=== PATIENT | female | born 1940 | race African-American/Black ===

== ENCOUNTER 2017-04-21 15:09 | Inpatient (IN) | payer MEDICAID, MEDICARE ==
--- NOTE | 2017-04-21 15:30 | ED Physician Chart ---
ED Chief Complaint/HPI - Patient Information Date Seen:: 04/21/17 Time Seen:: 15:20 Chief Complaint:: elevated white blood cell count History of Present Illness:: Patient was sent from her care home facility for elevated white blood cell count, increased lethargy, and episodes of confusion. Allergies:: Allergies Allergy/AdvReac Type Severity Reaction Status Date / Time No Known Allergies Allergy Verified 04/21/17 15:21 Historian:: Patient Review:: Transfer documents Reviewed ED Review of Systems - Review of Systems General/Constitutional: No fever, No chills Skin: No skin lesions Head: No headache Eyes: No loss of vision ENT: No earache Neck: No neck pain Cardio Vascular: No chest pain, No palpitations Pulmonary: No SOB, No cough GI: No nausea, No vomiting, No diarrhea G/U: No dysuria Musculoskeletal: No bone or joint pain Endocrine: No polyuria, No polydipsia Psychiatric: No prior psych history Hematopoietic: No bruising Allergic/Immuno: No urticaria Neurological: No syncope ED Past Medical History - Past Medical History Past Medical History: Arthritis, Other (anemia; thrombocytopenia purpura; status post urinary tract infection; glaucoma) Surgical History: other Psychiatricy History: None, Schizophrenia ED Physical Exam - Physical Examination Other Gen/Cons comments:: Chronically ill-appearing; contracture right upper extremity; confused, does not know the correct year Head: Atraumatic Eyes: Lids, conjuctiva normal Skin: Nl inspection ENMT: External ears, nose nl Other ENMT comments:: Edentulous Neck: No nuchal rigidity Respiratory: Nl effort/Exclusion, Clear to Auscultation Cardio Vascular: RRR, No murmur, gallop, rubs GI: No tenderness/rebounding/guarding, No organomegaly Extremities: Normal digits & nails Other Neuro/Psych comments:: Contracture right upper extremity ED Labs/Radiology/EKG Results - Lab Results Results: Laboratory Results - last 24 hr 04/21/17 04/21/17 04/21/17 15:35 15:43 15:43 WBC 10.3 RBC 4.78 Hgb 13.4 Hct 41.0 MCV 85.7 MCH 28.1 MCHC Differential 32.8 RDW 13.2 Plt Count 197 MPV 8.0 Neutrophils % 70.9 Lymphocytes % 21.7 Monocytes % 5.7 Eosinophils % 1.7 Basophils % 0.0 Sodium 140 Potassium 4.0 Chloride 103 Carbon Dioxide 30.6 Anion Gap 10.4 BUN 21 Creatinine 0.8 Est GFR ( Amer) TNP Est GFR (Non-Af Amer) TNP BUN/Creatinine Ratio 26.3 Glucose 117 H Calcium 9.7 Urine Source CATH Urine Color YELLOW Urine Clarity CLOUDY H Urine pH 6.0 Ur Specific [place] 1.025 Urine Protein 30 H Urine Glucose (UA) NEGATIVE Urine Ketones NEGATIVE Urine Blood SMALL H Urine Nitrate NEGATIVE Urine Bilirubin NEGATIVE Urine Urobilinogen 1.0 Ur Leukocyte Esterase MODERATE H Urine RBC 2-5 Urine WBC 10-25 H Ur Epithelial Cells MODERATE Urine Bacteria MODERATE H ED Septic Shock - . Is Septic Shock (SBP<90, OR Lactate>4 mmol\L) present?: No ED Reassessment (Disposition) - Reassessment Reassessment Condition:: Improved - Diagnosis Diagnosis:: Urinary tract infection - Patient Disposition Admitted to:: Med/Surg Spoke to:: Ricky Mijares Admitting Medical Physician:: Ricky Mijares Condition at Disposition:: Stable, Improved
[2017-04-21 15:42] LABS: URINE MICROSCOPIC INDICATED? YES; URINE SOURCE CATH
[2017-04-21 15:43] LABS: URINE BILIRUBIN NEGATIVE (NEGATIVE); URINE BLOOD SMALL (NEGATIVE); URINE GLUCOSE (UA) NEGATIVE (NEGATIVE); URINE KETONE NEGATIVE (NEGATIVE); URINE LEUKOCYTE ESTERASE MODERATE (NEGATIVE); URINE NITRATE NEGATIVE (NEGATIVE); URINE PROTEIN 30 mg/dL (NEGATIVE)
[2017-04-21 15:51] LABS: % EOSINOPHILS 1.7 % (0.0-5.0); % LYMPHOCYTES 21.7 % (20.0-50.0); % MONOCYTES 5.7 % (2.0-10.0); % NEUTROPHILS 70.9 % (40.0-80.0); EOSINOPHILE ABSOLUTE 0.2 Th/cmm (0.1-0.4); HEMOGLOBIN 13.4 gm/dL (12-16); LYMPHOCYTE ABSOLUTE 2.2 Th/cmm (1.5-3.0); MEAN CELL VOLUME 85.7 fl (81-100); MEAN CORPUSCULAR HEMOGLOBIN 28.1 pg (27.0-31.0); MEAN CORPUSCULAR HGB CONC 32.8 pg (28.0-36.0); MONOCYTE ABSOLUTE 0.6 Th/cmm (0.3-1.0); NEUTROPHILE ABSOLUTE 7.3 Th/cmm (1.8-8.0); PLATELET COUNT 197 Th/cmm (150-400); RED BLOOD COUNT 4.78 Mil/cmm (3.80-5.20); RED CELL DISTRIBUTION WIDTH 13.2 % (11.5-20.0); WHITE BLOOD COUNT 10.3 Th/cmm (4.8-10.8)
[2017-04-21 16:03] LABS: URINE CLARITY CLOUDY (CLEAR); URINE COLOR YELLOW
[2017-04-21 16:07] LABS: URINE BACTERIA MODERATE /hpf (NONE SEEN); URINE EPITHELIAL CELLS MODERATE /lpf (FEW)
[2017-04-21 16:18] LABS: ANION GAP 10.4 (7.0-16.0); BUN - UREA NITROGEN 21 mg/dL (7-25); CALCIUM SERUM 9.7 mg/dL (8.6-10.3); CARBON DIOXIDE 30.6 mEq/L (21.0-31.0); CHLORIDE 103 mEq/L (98-107); CREATININE - SERUM 0.8 mg/dL (0.6-1.2); GLUCOSE 117 mg/dL (70-105); SODIUM SERUM 140 mEq/L (136-145)
[2017-04-21] MEDS ORDERED: Sodium Chloride 0.9% 1,000 ML IV ONE (16:29)
[2017-04-21] MEDS ORDERED: cefTRIAXone 1 GM in Sodium Chloride 0.9% 50 ML IV ONE (16:29)
[2017-04-21] MEDS ORDERED: Non-Formulary Item 1 EA (Mylanta 30 ML) PO PRN (19:35)
[2017-04-21] MEDS ORDERED: Magnesium Hydroxide (MOM) 30 mL UDC PO PRN (19:35)
[2017-04-21] MEDS ORDERED: Maalox 30 mL Cup PO PRN (19:41)
[2017-04-21] MEDS ORDERED: Ipratropium Neb 0.5 mg/2.5 mL UD IH PRN (19:41)
[2017-04-21] MEDS ORDERED: Albuterol Nebulizer 2.5mg/3mL HHN PRN (19:41)
[2017-04-21] MEDS ORDERED: guaiFENesin 200 MG/10 ML UDC PO PRN (19:41)
[2017-04-21] MEDS: D5-0.9%NS 1,000 ML IV SCH (21:04)
--- NOTE | 2017-04-22 08:06 | Diagnostic Imaging Report ---
Portable chest x-ray Time: 1650 hours History: Pneumonia Allowing for portable technique the heart size is normal. No focal pulmonary parenchymal processes. No hilar or mediastinal abnormalities. Mild right basilar atelectasis is noted. Aortic arch calcified. Impression: No acute abnormalities.
[2017-04-22] MEDS: Pantoprazole 40 mg EC Tab PO SCH (08:30)
[2017-04-22] MEDS: Calcium Carb/Vit D 500 mg/200 U Tab PO SCH (08:30)
[2017-04-22] MEDS ORDERED: Non-Formulary Item 1 EA (Pantoprazole Sodium [Protonix] 20 MG) PO SCH (09:00)
--- NOTE | 2017-04-22 09:24 | Diagnostic Imaging Report ---
KUB single view HISTORY: Constipation. COMPARISON: None FINDINGS: Copious stool is seen throughout the colon. Calcifications of the pelvis are noted. Diffuse atherosclerosis is noted. Degenerative changes of the spine and right hip joint are noted. IMPRESSION: Copious stool throughout the colon with gas-filled loops of bowel probably due to constipation, correlate clinically. Pelvic calcifications possibly representing fibroids. Consider further assessment with CT or ultrasound Atherosclerotic vascular disease.
[2017-04-22] MEDS ORDERED: Magnesium Citrate 1.75 GM/300 mL Bottle PO ONE (13:06)
--- NOTE | 2017-04-22 13:39 | Internal Medicine Prog Note ---
Internal Medicine Subjective - Subjective Service Date: 04/22/17 ([id number]) Internal Medicine Objective - Results Result Diagrams: 04/21/17 15:43 04/21/17 15:43 Recent Labs: Laboratory Last Values WBC 10.3 Th/cmm (4.8-10.8) 04/21/17 15:43 RBC 4.78 Mil/cmm (3.80-5.20) 04/21/17 15:43 Hgb 13.4 gm/dL (12-16) 04/21/17 15:43 Hct 41.0 % (41.0-60) 04/21/17 15:43 MCV 85.7 fl (81-100) 04/21/17 15:43 MCH 28.1 pg (27.0-31.0) 04/21/17 15:43 MCHC Differential 32.8 pg (28.0-36.0) 04/21/17 15:43 RDW 13.2 % (11.5-20.0) 04/21/17 15:43 Plt Count 197 Th/cmm (150-400) 04/21/17 15:43 MPV 8.0 fl 04/21/17 15:43 Neutrophils % 70.9 % (40.0-80.0) 04/21/17 15:43 Lymphocytes % 21.7 % (20.0-50.0) 04/21/17 15:43 Monocytes % 5.7 % (2.0-10.0) 04/21/17 15:43 Eosinophils % 1.7 % (0.0-5.0) 04/21/17 15:43 Basophils % 0.0 % (0.0-2.0) 04/21/17 15:43 Sodium 140 mEq/L (136-145) 04/21/17 15:43 Potassium 4.0 mEq/L (3.5-5.1) 04/21/17 15:43 Chloride 103 mEq/L (98-107) 04/21/17 15:43 Carbon Dioxide 30.6 mEq/L (21.0-31.0) 04/21/17 15:43 Anion Gap 10.4 (7.0-16.0) 04/21/17 15:43 BUN 21 mg/dL (7-25) 04/21/17 15:43 Creatinine 0.8 mg/dL (0.6-1.2) 04/21/17 15:43 Est GFR ( Amer) TNP 04/21/17 15:43 Est GFR (Non-Af Amer) TNP 04/21/17 15:43 BUN/Creatinine Ratio 26.3 04/21/17 15:43 Glucose 117 mg/dL (70-105) H 04/21/17 15:43 Calcium 9.7 mg/dL (8.6-10.3) 04/21/17 15:43 Urine Source CATH 04/21/17 15:35 Urine Color YELLOW 04/21/17 15:35 Urine Clarity CLOUDY (CLEAR) H 04/21/17 15:35 Urine pH 6.0 (4.6 - 8.0) 04/21/17 15:35 Ur Specific [place] 1.025 (1.005-1.030) 04/21/17 15:35 Urine Protein 30 mg/dL (NEGATIVE) H 04/21/17 15:35 Urine Glucose (UA) NEGATIVE mg/dL (NEGATIVE) 04/21/17 15:35 Urine Ketones NEGATIVE mg/dL (NEGATIVE) 04/21/17 15:35 Urine Blood SMALL (NEGATIVE) H 04/21/17 15:35 Urine Nitrate NEGATIVE (NEGATIVE) 04/21/17 15:35 Urine Bilirubin NEGATIVE (NEGATIVE) 04/21/17 15:35 Urine Urobilinogen 1.0 E.U./dL (0.2 - 1.0) 04/21/17 15:35 Ur Leukocyte Esterase MODERATE (NEGATIVE) H 04/21/17 15:35 Urine RBC 2-5 /hpf (0-5) 04/21/17 15:35 Urine WBC 10-25 /hpf (0-5) H 04/21/17 15:35 Ur Epithelial Cells MODERATE /lpf (FEW) 04/21/17 15:35 Urine Bacteria MODERATE /hpf (NONE SEEN) H 04/21/17 15:35 - Physical Exam Vitals and I&O: Vital Signs Temp 98.7 F 04/22/17 11:35 Pulse 65 04/22/17 11:35 Resp 16 04/22/17 11:35 BP 109/40 04/22/17 11:35 Pulse Ox 98 04/22/17 11:35 Intake & Output 04/21/17 04/22/1718 18:59 06:59 18:59 Weight (lbs) 105 lb Active Medications: Current Medications Acetaminophen (Tylenol) 650 mg PO Q4H PRN PRN Reason: Pain Or Fever above 101 Stop: 06/20/17 19:40 Al Hydrox/Mg Hydrox/Simethicone (Maalox) 30 ml PO Q6H PRN PRN Reason: Dyspepsia Stop: 06/20/17 19:40 Albuterol Sulfate (Albuterol 2.5mg/3ml Neb Ud) 2.5 mg HHN Q2HRT PRN PRN Reason: Shortness of Breath or Wheeze Stop: 06/20/17 19:40 Amlodipine Besylate (Norvasc) 5 mg PO DAILY [facility] Stop: 06/21/17 08:59 Last Admin: 04/22/17 08:31 Dose: 5 mg Brimonidine Tartrate (Alphagan 0.1% Ophth Soln) 1 drop EACH EYE BID [facility] Stop: 06/21/17 08:59 Calcium/Vitamin D (Oscal W/Vitamin D) 1 tab PO DAILY [facility] Stop: 06/21/17 08:59 Last Admin: 04/22/17 08:30 Dose: 1 tab Donepezil HCl (Aricept) 10 mg PO HS [facility] Stop: 06/20/17 20:59 Last Admin: 04/21/17 23:01 Dose: 10 mg Guaifenesin (Robitussin) 200 mg PO Q4HR PRN PRN Reason: Cough or Congestion Stop: 06/20/17 19:40 Dextrose/Sodium Chloride (D5-0.9%Ns) 1,000 mls @ 80 mls/hr IV .[id number] [facility] Stop: 06/20/17 19:44 Last Admin: 04/21/17 21:04 Dose: 80 mls/hr Cefepime HCl 1 gm/ Dextrose 50 mls @ 100 mls/hr IV Q12HR [facility] Stop: 06/21/17 08:59 Last Admin: 04/22/17 10:51 Dose: 100 mls/hr Ipratropium [place] (Atrovent Neb 0.5mg/2.5ml) 0.5 mg IH Q2HRT PRN PRN Reason: Shortness of Breath or Wheeze Stop: 06/20/17 19:40 Loratadine (Claritin) 10 mg PO DAILY [facility] Stop: 06/21/17 08:59 Last Admin: 04/22/17 08:30 Dose: 10 mg Lorazepam (Ativan) 0.5 mg PO Q12H PRN; Protocol PRN Reason: Anxiety Stop: 06/20/17 19:34 Magnesium Citrate (Citroma) 17.5 gm PO X1 ONE Stop: 04/22/17 13:07 Magnesium Hydroxide (Milk Of Magnesia) 30 ml PO HS PRN PRN Reason: Constipation Stop: 06/20/17 19:34 Memantine (Namenda) 5 mg PO BID [facility] Stop: 06/21/17 08:59 Last Admin: 04/22/17 08:31 Dose: 5 mg Mineral Oil (Mineral Oil 30 Ml) 30 ml PO DAILY [facility] Stop: 04/26/17 08:59 Mirtazapine (Remeron) 7.5 mg PO HS [facility] PRN Reason: Protocol Stop: 06/20/17 20:59 Last Admin: 04/21/17 23:01 Dose: 7.5 mg Ondansetron HCl (Zofran) 4 mg IV Q8H PRN PRN Reason: Nausea / Vomiting Stop: 06/20/17 19:40 Pantoprazole Sodium (Protonix) 40 mg PO DAILY [facility] Stop: 06/21/17 08:59 Last Admin: 04/22/17 08:30 Dose: 40 mg
[2017-04-22] MEDS: D5-0.9%NS 1,000 ML IV SCH (13:51)
--- NOTE | 2017-04-22 17:10 | History & Physical ---
ADMIT DATE: 04/21/2017 CHIEF COMPLAINT: Elevated WBCs. HISTORY OF PRESENT ILLNESS: This is a 77-year-old female who is a resident of [facility], was brought here to [facility] due to increase in lethargy and episodes of confusion. The patient is now admitted here to the med/surg unit. PAST MEDICAL HISTORY: Arthritis, anemia, thrombocytopenia, purpura, status post UTI and glaucoma. PAST SURGICAL HISTORY: None. FAMILY HISTORY: Noncontributory. SOCIAL HISTORY: The patient is [facility] [place]. REVIEW OF SYSTEMS: Unable to obtain due to patient's mental status. PHYSICAL EXAMINATION: GENERAL: The patient is well-developed, well-nourished, in no acute distress. VITAL SIGNS: Temperature 99.7, heart rate 65, blood pressure 109/40, respirations 16 and O2 98%. HEENT: Head; normocephalic, atraumatic. NECK: Supple. No mass. LUNGS: Clear bilaterally. ABDOMEN: Soft and nontender. LABORATORY DATA: WBC 10.3, H and H of 13.4 and 41.0 and platelet of 197. Sodium 140, potassium 4.0, chloride 103, BUN 21 and creatinine 0.8. The patient had a urinalysis done positive for UTI. DIAGNOSTICS: The patient had a KUB done and impression is copious stool throughout the colon with gas filled loops of bowel, probably secondary to constipation. The patient also had a chest x-ray done and the impression is no acute abnormalities. ASSESSMENT: 1. Acute urinary tract infection. 2. Altered mental status. 3. Acute dehydration. 4. Constipation. 5. Arthritis. 6. Glaucoma. 7. Schizophrenia. PLAN: The patient to be admitted to med/surg unit. We will keep the patient on empiric IV antibiotics of Maxipime and IV fluids for hydration. We will monitor the patient's electrolyte levels. We will sent urine for culture. We will continue to follow this patient. JOB# [id number]
[2017-04-23] MEDS: D5-0.9%NS 1,000 ML IV SCH ×2 (03:51→16:53)
[2017-04-23 05:19] LABS: % BASOPHILS 0.2 % (0.0-2.0); % EOSINOPHILS 3.3 % (0.0-5.0); % LYMPHOCYTES 27.1 % (20.0-50.0); % MONOCYTES 7.6 % (2.0-10.0); % NEUTROPHILS 61.8 % (40.0-80.0); EOSINOPHILE ABSOLUTE 0.3 Th/cmm (0.1-0.4); HEMOGLOBIN 11.6 gm/dL (12-16); LYMPHOCYTE ABSOLUTE 2.1 Th/cmm (1.5-3.0); MEAN CELL VOLUME 85.9 fl (81-100); MEAN CORPUSCULAR HEMOGLOBIN 28.7 pg (27.0-31.0); MEAN CORPUSCULAR HGB CONC 33.4 pg (28.0-36.0); MEAN PLATELET VOLUME 8.5 fl; MONOCYTE ABSOLUTE 0.6 Th/cmm (0.3-1.0); NEUTROPHILE ABSOLUTE 4.9 Th/cmm (1.8-8.0); PLATELET COUNT 176 Th/cmm (150-400); RED BLOOD COUNT 4.05 Mil/cmm (3.80-5.20); RED CELL DISTRIBUTION WIDTH 13.2 % (11.5-20.0)
[2017-04-23 05:23] LABS: HEMATOCRIT 34.8 % (41.0-60); WHITE BLOOD COUNT 7.9 Th/cmm (4.8-10.8)
[2017-04-23 05:29] LABS: ANION GAP 7.2 (7.0-16.0); BUN - UREA NITROGEN 10 mg/dL (7-25); CALCIUM SERUM 8.8 mg/dL (8.6-10.3); CARBON DIOXIDE 28.7 mEq/L (21.0-31.0); CHLORIDE 108 mEq/L (98-107); CREATININE - SERUM 0.5 mg/dL (0.6-1.2); GLUCOSE 113 mg/dL (70-105); POTASSIUM SERUM 3.9 mEq/L (3.5-5.1); SODIUM SERUM 140 mEq/L (136-145)
[2017-04-23] MEDS: Calcium Carb/Vit D 500 mg/200 U Tab PO SCH (08:51)
[2017-04-23] MEDS: Pantoprazole 40 mg EC Tab PO SCH (08:51)
--- NOTE | 2017-04-23 15:33 | Internal Medicine Prog Note ---
Internal Medicine Subjective - Subjective Service Date: 04/23/17 Internal Medicine Objective - Results Result Diagrams: 04/23/17 04:55 04/23/17 04:55 Recent Labs: Laboratory Last Values WBC 7.9 Th/cmm (4.8-10.8) D 04/23/17 04:55 RBC 4.05 Mil/cmm (3.80-5.20) 04/23/17 04:55 Hgb 11.6 gm/dL (12-16) L 04/23/17 04:55 Hct 34.8 % (41.0-60) L D 04/23/17 04:55 MCV 85.9 fl (81-100) 04/23/17 04:55 MCH 28.7 pg (27.0-31.0) 04/23/17 04:55 MCHC Differential 33.4 pg (28.0-36.0) 04/23/17 04:55 RDW 13.2 % (11.5-20.0) 04/23/17 04:55 Plt Count 176 Th/cmm (150-400) 04/23/17 04:55 MPV 8.5 fl 04/23/17 04:55 Neutrophils % 61.8 % (40.0-80.0) 04/23/17 04:55 Lymphocytes % 27.1 % (20.0-50.0) 04/23/17 04:55 Monocytes % 7.6 % (2.0-10.0) 04/23/17 04:55 Eosinophils % 3.3 % (0.0-5.0) 04/23/17 04:55 Basophils % 0.2 % (0.0-2.0) 04/23/17 04:55 Sodium 140 mEq/L (136-145) 04/23/17 04:55 Potassium 3.9 mEq/L (3.5-5.1) 04/23/17 04:55 Chloride 108 mEq/L (98-107) H 04/23/17 04:55 Carbon Dioxide 28.7 mEq/L (21.0-31.0) 04/23/17 04:55 Anion Gap 7.2 (7.0-16.0) 04/23/17 04:55 BUN 10 mg/dL (7-25) 04/23/17 04:55 Creatinine 0.5 mg/dL (0.6-1.2) L 04/23/17 04:55 Est GFR ( Amer) TNP 04/23/17 04:55 Est GFR (Non-Af Amer) TNP 04/23/17 04:55 BUN/Creatinine Ratio 20.0 04/23/17 04:55 Glucose 113 mg/dL (70-105) H 04/23/17 04:55 Calcium 8.8 mg/dL (8.6-10.3) 04/23/17 04:55 Urine Source CATH 04/21/17 15:35 Urine Color YELLOW 04/21/17 15:35 Urine Clarity CLOUDY (CLEAR) H 04/21/17 15:35 Urine pH 6.0 (4.6 - 8.0) 04/21/17 15:35 Ur Specific [place] 1.025 (1.005-1.030) 04/21/17 15:35 Urine Protein 30 mg/dL (NEGATIVE) H 04/21/17 15:35 Urine Glucose (UA) NEGATIVE mg/dL (NEGATIVE) 04/21/17 15:35 Urine Ketones NEGATIVE mg/dL (NEGATIVE) 04/21/17 15:35 Urine Blood SMALL (NEGATIVE) H 04/21/17 15:35 Urine Nitrate NEGATIVE (NEGATIVE) 04/21/17 15:35 Urine Bilirubin NEGATIVE (NEGATIVE) 04/21/17 15:35 Urine Urobilinogen 1.0 E.U./dL (0.2 - 1.0) 04/21/17 15:35 Ur Leukocyte Esterase MODERATE (NEGATIVE) H 04/21/17 15:35 Urine RBC 2-5 /hpf (0-5) 04/21/17 15:35 Urine WBC 10-25 /hpf (0-5) H 04/21/17 15:35 Ur Epithelial Cells MODERATE /lpf (FEW) 04/21/17 15:35 Urine Bacteria MODERATE /hpf (NONE SEEN) H 04/21/17 15:35 - Physical Exam Vitals and I&O: Vital Signs Temp 99.7 F 04/23/17 11:18 Pulse 61 04/23/17 11:18 Resp 18 04/23/17 11:18 BP 131/69 04/23/17 11:18 Pulse Ox 99 04/23/17 11:18 Intake & Output 04/22/17 04/23/1704/23/18 18:59 06:59 18:59 Intake Total 1050 1384 Balance 1050 1384 Weight (lbs) 105 lb 115 lb Intake: Intake, IV Amount 1050 1234 Cefepime 1 gm In Dextrose 50 50 5% 50 ml @ 100 mls/hr IV Q12HR [facility] Rx#:[id number] D5-0.9%Ns 1,000 ml @ 80 1000 1184 mls/hr IV .[id number] [facility] Rx #:[id number] Oral 150 Other: # Voids 2 # Bowel Movements 1 Active Medications: Current Medications Acetaminophen (Tylenol) 650 mg PO Q4H PRN PRN Reason: Pain Or Fever above 101 Stop: 06/20/17 19:40 Al Hydrox/Mg Hydrox/Simethicone (Maalox) 30 ml PO Q6H PRN PRN Reason: Dyspepsia Stop: 06/20/17 19:40 Albuterol Sulfate (Albuterol 2.5mg/3ml Neb Ud) 2.5 mg HHN Q2HRT PRN PRN Reason: Shortness of Breath or Wheeze Stop: 06/20/17 19:40 Amlodipine Besylate (Norvasc) 5 mg PO DAILY [facility] Stop: 06/21/17 08:59 Last Admin: 04/23/17 08:51 Dose: 5 mg Brimonidine Tartrate (Alphagan 0.1% Ophth Soln) 1 drop EACH EYE BID [facility] Stop: 06/21/17 08:59 Last Admin: 04/23/17 08:50 Dose: 1 drop Calcium/Vitamin D (Oscal W/Vitamin D) 1 tab PO DAILY [facility] Stop: 06/21/17 08:59 Last Admin: 04/23/17 08:51 Dose: 1 tab Donepezil HCl (Aricept) 10 mg PO HS [facility] Stop: 06/20/17 20:59 Last Admin: 04/22/17 21:20 Dose: 10 mg Guaifenesin (Robitussin) 200 mg PO Q4HR PRN PRN Reason: Cough or Congestion Stop: 06/20/17 19:40 Dextrose/Sodium Chloride (D5-0.9%Ns) 1,000 mls @ 80 mls/hr IV .[id number] [facility] Stop: 06/20/17 19:44 Last Infusion: 04/23/17 06:09 Dose: 80 mls/hr Cefepime HCl 1 gm/ Dextrose 50 mls @ 100 mls/hr IV Q12HR [facility] Stop: 06/21/17 08:59 Last Admin: 04/23/17 08:50 Dose: 100 mls/hr Ipratropium [place] (Atrovent Neb 0.5mg/2.5ml) 0.5 mg IH Q2HRT PRN PRN Reason: Shortness of Breath or Wheeze Stop: 06/20/17 19:40 Loratadine (Claritin) 10 mg PO DAILY [facility] Stop: 06/21/17 08:59 Last Admin: 04/23/17 08:51 Dose: 10 mg Lorazepam (Ativan) 0.5 mg PO Q12H PRN; Protocol PRN Reason: Anxiety Stop: 06/20/17 19:34 Magnesium Hydroxide (Milk Of Magnesia) 30 ml PO HS PRN PRN Reason: Constipation Stop: 06/20/17 19:34 Memantine (Namenda) 5 mg PO BID [facility] Stop: 06/21/17 08:59 Last Admin: 04/23/17 08:51 Dose: 5 mg Mineral Oil (Mineral Oil 30 Ml) 30 ml PO DAILY [facility] Stop: 04/26/17 08:59 Last Admin: 04/23/17 08:50 Dose: 30 ml Mirtazapine (Remeron) 7.5 mg PO HS [facility] PRN Reason: Protocol Stop: 06/20/17 20:59 Last Admin: 04/22/17 21:20 Dose: 7.5 mg Ondansetron HCl (Zofran) 4 mg IV Q8H PRN PRN Reason: Nausea / Vomiting Stop: 06/20/17 19:40 Pantoprazole Sodium (Protonix) 40 mg PO DAILY [facility] Stop: 06/21/17 08:59 Last Admin: 04/23/17 08:51 Dose: 40 mg Internal Medicine Assmt/Plan - Assessment Assessment: acute uti altered mental status constipation arthritis glaucoma - Plan Plan: continue ivabx ivf for hydration cbc/bmp in am continue current orders Nutritional Asmnt/Malnutr-PDOC - Dietary Evaluation Malnutrition Findings (Please click <Entered> for more info): Nutritional Asmnt/Malnutrition Start: 04/22/17 17: 36 Text: Status: Complete Freq: Document 04/22/17 17:36 LCHENG (Rec: 04/22/17 17:44 [facility] [email or web address]) Nutritional Asmnt/Malnutrition Patient General Information Nutritional Screening High Risk Diagnosis dehydration, UTI Pertinent Medical Hx/Surgical Hx arthritis, anemia, thrombocytopenia purpura, s/p UTI, glaucoma Subjective Information Pt seen sleeping at time of visit. Nurse reported pt consumed 20% of breakfast, about 25% of lunch. Pt only had pudding, jello and juice at lunch. Current Diet Order/ Nutrition Support [facility] soft chopped Pertinent Medications oscal w/vit D, D5-0.9%ns, protonix, remeron Pertinent Labs 04/21 Na 140, K 4.0, Cl 103, BUN 21, Cr 0.8, glucose 117 Nutritional Hx/Data Height 5 ft 1 in Height (Calculated Centimeters) 154.9 Current Weight (lbs) 105 lb Weight (Calculated Kilograms) 47.6 Weight (Calculated Grams) 50715.2 [place] Body Weight 105 % [place] Body Weight 100 Body Mass Index (BMI) 19.8 Weight Status Approriate GI Symptoms GI Symptoms None Last BM no record Difficult in: None Skin Integrity/Comment: scar tissue to sacro-coccyx and buttocks Current %PO Poor (25-49%) Estimated Nutritional Goals BEE in Kcals: Using Current wt Calories/Kcals/Kg 25-30 Kcals Calculated 5392-7261 Protein: Using Current wt Protein g/k-1.2 Protein Calculated 48-57 Fluid: ml 1200-1440ml (1ml/kcal) Nutritional Problem 1. Problem Problem inadequate food intake Etiology possible poor appetite, weakness Signs/Symptoms: PO intake 25% Malnutrition Alert Protein-Calorie Malnutrition N/A Is there a minimum of two criteria No selected? Query Text:Check all the applicable criteria. A minimum of two criteria are recommended for diagnosis of either severe or non-severe malnutrition. Intervention/Recommendation Comments c Expected Outcomes/Goals Expected Outcomes/Goals 1. PO intake to meet at least 75% of nutritional needs. 2. Wt stability, skin to remain intact, labs to approach WNL.
[2017-04-24] MEDS: D5-0.9%NS 1,000 ML IV SCH ×2 (02:54→19:11)
[2017-04-24 05:56] LABS: % EOSINOPHILS 4.1 % (0.0-5.0); % LYMPHOCYTES 25.9 % (20.0-50.0); % MONOCYTES 7.2 % (2.0-10.0); % NEUTROPHILS 61.8 % (40.0-80.0); BASOPHILE ABSOLUTE 0.1 Th/cumm (0-0.2); EOSINOPHILE ABSOLUTE 0.3 Th/cmm (0.1-0.4); HEMATOCRIT 35.3 % (41.0-60); HEMOGLOBIN 11.7 gm/dL (12-16); LYMPHOCYTE ABSOLUTE 2.1 Th/cmm (1.5-3.0); MEAN CORPUSCULAR HEMOGLOBIN 28.5 pg (27.0-31.0); MEAN CORPUSCULAR HGB CONC 33.2 pg (28.0-36.0); MEAN PLATELET VOLUME 8.7 fl; MONOCYTE ABSOLUTE 0.6 Th/cmm (0.3-1.0); NEUTROPHILE ABSOLUTE 5.1 Th/cmm (1.8-8.0); PLATELET COUNT 184 Th/cmm (150-400); RED BLOOD COUNT 4.11 Mil/cmm (3.80-5.20); RED CELL DISTRIBUTION WIDTH 13.3 % (11.5-20.0); WHITE BLOOD COUNT 8.2 Th/cmm (4.8-10.8)
[2017-04-24 06:15] LABS: ALBUMIN 3.2 gm/dL (3.7-5.3); ALKALINE PHOSPHATASE 59 U/L (34-104); BILIRUBIN,TOTAL 0.4 mg/dL (0.3-1.0); BUN - UREA NITROGEN 7 mg/dL (7-25); CALCIUM SERUM 9.1 mg/dL (8.6-10.3); CARBON DIOXIDE 30.9 mEq/L (21.0-31.0); CHLORIDE 103 mEq/L (98-107); CREATININE - SERUM 0.4 mg/dL (0.6-1.2); GLUCOSE 110 mg/dL (70-105); MAGNESIUM 2.2 mg/dL (1.9-2.7); POTASSIUM SERUM 3.9 mEq/L (3.5-5.1); SGOT 13 U/L (13-39); SGPT/ALT 9 U/L (7-52); SODIUM SERUM 138 mEq/L (136-145); TOTAL PROTEIN,SERUM 6.4 gm/dL (6.0-8.3)
[2017-04-24] MEDS: Calcium Carb/Vit D 500 mg/200 U Tab PO SCH (09:34)
[2017-04-24] MEDS: Pantoprazole 40 mg EC Tab PO SCH (09:35)
--- NOTE | 2017-04-24 12:22 | Internal Medicine Prog Note ---
Internal Medicine Subjective - Subjective Patient seen and examined:: with staff, chart reviewed Patient is:: asleep, non-verbal, non-interactive Patient Complaints of:: congestion, constipation Per staff patient has:: no adverse event, no episodes of fall, poor appetite, noncompliant, confused, tolerating meds Internal Medicine Objective - Results Result Diagrams: 04/24/17 05:25 04/24/17 05:25 Recent Labs: Laboratory Last Values WBC 8.2 Th/cmm (4.8-10.8) 04/24/17 05:25 RBC 4.11 Mil/cmm (3.80-5.20) 04/24/17 05:25 Hgb 11.7 gm/dL (12-16) L 04/24/17 05:25 Hct 35.3 % (41.0-60) L 04/24/17 05:25 MCV 86.0 fl (81-100) 04/24/17 05:25 MCH 28.5 pg (27.0-31.0) 04/24/17 05:25 MCHC Differential 33.2 pg (28.0-36.0) 04/24/17 05:25 RDW 13.3 % (11.5-20.0) 04/24/17 05:25 Plt Count 184 Th/cmm (150-400) 04/24/17 05:25 MPV 8.7 fl 04/24/17 05:25 Neutrophils % 61.8 % (40.0-80.0) 04/24/17 05:25 Lymphocytes % 25.9 % (20.0-50.0) 04/24/17 05:25 Monocytes % 7.2 % (2.0-10.0) 04/24/17 05:25 Eosinophils % 4.1 % (0.0-5.0) 04/24/17 05:25 Basophils % 1.0 % (0.0-2.0) 04/24/17 05:25 Sodium 138 mEq/L (136-145) 04/24/17 05:25 Potassium 3.9 mEq/L (3.5-5.1) 04/24/17 05:25 Chloride 103 mEq/L (98-107) 04/24/17 05:25 Carbon Dioxide 30.9 mEq/L (21.0-31.0) 04/24/17 05:25 Anion Gap 8.0 (7.0-16.0) 04/24/17 05:25 BUN 7 mg/dL (7-25) 04/24/17 05:25 Creatinine 0.4 mg/dL (0.6-1.2) L 04/24/17 05:25 Est GFR ( Amer) TNP 04/24/17 05:25 Est GFR (Non-Af Amer) TNP 04/24/17 05:25 BUN/Creatinine Ratio 17.5 04/24/17 05:25 Glucose 110 mg/dL (70-105) H 04/24/17 05:25 Calcium 9.1 mg/dL (8.6-10.3) 04/24/17 05:25 Magnesium 2.2 mg/dL (1.9-2.7) 04/24/17 05:25 Total Bilirubin 0.4 mg/dL (0.3-1.0) 04/24/17 05:25 AST 13 U/L (13-39) 04/24/17 05:25 ALT 9 U/L (7-52) 04/24/17 05:25 Alkaline Phosphatase 59 U/L (34-104) 04/24/17 05:25 Ammonia 62 umol/L (16-53) H 04/24/17 05:25 B-Natriuretic Peptide 85.6 pg/mL (5.0-100.0) 04/24/17 05:25 Total Protein 6.4 gm/dL (6.0-8.3) 04/24/17 05:25 Albumin 3.2 gm/dL (3.7-5.3) L 04/24/17 05:25 Globulin 3.2 gm/dL 04/24/17 05:25 Albumin/Globulin Ratio 1.0 (1.0-1.8) 04/24/17 05:25 Urine Source CATH 04/21/17 15:35 Urine Color YELLOW 04/21/17 15:35 Urine Clarity CLOUDY (CLEAR) H 04/21/17 15:35 Urine pH 6.0 (4.6 - 8.0) 04/21/17 15:35 Ur Specific [place] 1.025 (1.005-1.030) 04/21/17 15:35 Urine Protein 30 mg/dL (NEGATIVE) H 04/21/17 15:35 Urine Glucose (UA) NEGATIVE mg/dL (NEGATIVE) 04/21/17 15:35 Urine Ketones NEGATIVE mg/dL (NEGATIVE) 04/21/17 15:35 Urine Blood SMALL (NEGATIVE) H 04/21/17 15:35 Urine Nitrate NEGATIVE (NEGATIVE) 04/21/17 15:35 Urine Bilirubin NEGATIVE (NEGATIVE) 04/21/17 15:35 Urine Urobilinogen 1.0 E.U./dL (0.2 - 1.0) 04/21/17 15:35 Ur Leukocyte Esterase MODERATE (NEGATIVE) H 04/21/17 15:35 Urine RBC 2-5 /hpf (0-5) 04/21/17 15:35 Urine WBC 10-25 /hpf (0-5) H 04/21/17 15:35 Ur Epithelial Cells MODERATE /lpf (FEW) 04/21/17 15:35 Urine Bacteria MODERATE /hpf (NONE SEEN) H 04/21/17 15:35 - Physical Exam Vitals and I&O: Vital Signs Temp 97.3 F 04/24/17 04:00 Pulse 72 04/24/17 09:34 Resp 18 04/24/17 08:30 BP 141/78 04/24/17 09:34 Pulse Ox 97 04/24/17 08:28 Intake & Output 04/23/17 04/24/17 04/24/17 18:59 06:59 18:59 Intake Total 1266 851.333 Balance 1266 851.333 Weight (lbs) 54.522 kg Intake: Intake, IV Amount 866 851.333 Cefepime 1 gm In Dextrose 50 50 5% 50 ml @ 100 mls/hr IV Q12HR [facility] Rx#:[id number] D5-0.9%Ns 1,000 ml @ 80 816 801.333 mls/hr IV .[id number] [facility] Rx #:[id number] Oral 400 Tube Feeding 0 Other: # Voids 3 # Bowel Movements 1 Active Medications: Current Medications Acetaminophen (Tylenol) 650 mg PO Q4H PRN PRN Reason: Pain Or Fever above 101 Stop: 06/20/17 19:40 Al Hydrox/Mg Hydrox/Simethicone (Maalox) 30 ml PO Q6H PRN PRN Reason: Dyspepsia Stop: 06/20/17 19:40 Albuterol Sulfate (Albuterol 2.5mg/3ml Neb Ud) 2.5 mg HHN Q2HRT PRN PRN Reason: Shortness of Breath or Wheeze Stop: 06/20/17 19:40 Amlodipine Besylate (Norvasc) 5 mg PO DAILY [facility] Stop: 06/21/17 08:59 Last Admin: 04/24/17 09:34 Dose: 5 mg Brimonidine Tartrate (Alphagan 0.1% Ophth Soln) 1 drop EACH EYE BID [facility] Stop: 06/21/17 08:59 Last Admin: 04/24/17 09:35 Dose: 1 drop Calcium/Vitamin D (Oscal W/Vitamin D) 1 tab PO DAILY [facility] Stop: 06/21/17 08:59 Last Admin: 04/24/17 09:34 Dose: 1 tab Donepezil HCl (Aricept) 10 mg PO HS [facility] Stop: 06/20/17 20:59 Last Admin: 04/23/17 20:54 Dose: 10 mg Guaifenesin (Robitussin) 200 mg PO Q4HR PRN PRN Reason: Cough or Congestion Stop: 06/20/17 19:40 Dextrose/Sodium Chloride (D5-0.9%Ns) 1,000 mls @ 80 mls/hr IV .[id number] [facility] Stop: 06/20/17 19:44 Last Admin: 04/24/17 02:54 Dose: 80 mls/hr Cefepime HCl 1 gm/ Dextrose 50 mls @ 100 mls/hr IV Q12HR [facility] Stop: 06/21/17 08:59 Last Admin: 04/24/17 09:34 Dose: 100 mls/hr Ipratropium [place] (Atrovent Neb 0.5mg/2.5ml) 0.5 mg IH Q2HRT PRN PRN Reason: Shortness of Breath or Wheeze Stop: 06/20/17 19:40 Loratadine (Claritin) 10 mg PO DAILY [facility] Stop: 06/21/17 08:59 Last Admin: 04/24/17 09:34 Dose: 10 mg Lorazepam (Ativan) 0.5 mg PO Q12H PRN; Protocol PRN Reason: Anxiety Stop: 06/20/17 19:34 Magnesium Hydroxide (Milk Of Magnesia) 30 ml PO HS PRN PRN Reason: Constipation Stop: 06/20/17 19:34 Memantine (Namenda) 5 mg PO BID [facility] Stop: 06/21/17 08:59 Last Admin: 04/24/17 09:35 Dose: 5 mg Mineral Oil (Mineral Oil 30 Ml) 30 ml PO DAILY [facility] Stop: 04/26/17 08:59 Last Admin: 04/24/17 09:35 Dose: 30 ml Mirtazapine (Remeron) 7.5 mg PO HS [facility] PRN Reason: Protocol Stop: 06/20/17 20:59 Last Admin: 04/23/17 20:54 Dose: 7.5 mg Ondansetron HCl (Zofran) 4 mg IV Q8H PRN PRN Reason: Nausea / Vomiting Stop: 06/20/17 19:40 Pantoprazole Sodium (Protonix) 40 mg PO DAILY [facility] Stop: 06/21/17 08:59 Last Admin: 04/24/17 09:35 Dose: 40 mg General: lethargic, demented, bilateral temporal wasting, appears older HEENT: NC/AT, PERRLA Neck: Supple, No JVD Lungs: congested, rales, ronchi Cardiovascular: RRR, Normal S1, Normal S2, with murmur Abdomen: soft, thin, non-distended, positive bowel sound Extremities: excoriation, contracture, deformity Neurological: lethargic, disorganized, bedbound Internal Medicine Assmt/Plan - Assessment Assessment: - Assessment Assessment: acute uti altered mental status constipation arthritis glaucoma anemia malnutrition - Plan Plan: continue ivabx ivf for hydration cbc/bmp in am continue current orders - Plan Plan: cpm Nutritional Asmnt/Malnutr-PDOC - Dietary Evaluation Malnutrition Findings (Please click <Entered> for more info): Nutritional Asmnt/Malnutrition Start: 04/22/17 17: 36 Text: Status: Complete Freq: Document 04/22/17 17:36 LAUREN (Rec: 04/22/17 17:44 LAUREN [id number]) Nutritional Asmnt/Malnutrition Patient General Information Nutritional Screening High Risk Diagnosis dehydration, UTI Pertinent Medical Hx/Surgical Hx arthritis, anemia, thrombocytopenia purpura, s/p UTI, glaucoma Subjective Information Pt seen sleeping at time of visit. Nurse reported pt consumed 20% of breakfast, about 25% of lunch. Pt only had pudding, jello and juice at lunch. Current Diet Order/ Nutrition Support [facility] soft chopped Pertinent Medications oscal w/vit D, D5-0.9%ns, protonix, remeron Pertinent Labs 04/21 Na 140, K 4.0, Cl 103, BUN 21, Cr 0.8, glucose 117 Nutritional Hx/Data Height 1.55 m Height (Calculated Centimeters) 154.9 Current Weight (lbs) 47.627 kg Weight (Calculated Kilograms) 47.6 Weight (Calculated Grams) 49204.2 [place] Body Weight 105 % [place] Body Weight 100 Body Mass Index (BMI) 19.8 Weight Status Approriate GI Symptoms GI Symptoms None Last BM no record Difficult in: None Skin Integrity/Comment: scar tissue to sacro-coccyx and buttocks Current %PO Poor (25-49%) Estimated Nutritional Goals BEE in Kcals: Using Current wt Calories/Kcals/Kg 25-30 Kcals Calculated 9724-3307 Protein: Using Current wt Protein g/k-1.2 Protein Calculated 48-57 Fluid: ml 1200-1440ml (1ml/kcal) Nutritional Problem 1. Problem Problem inadequate food intake Etiology possible poor appetite, weakness Signs/Symptoms: PO intake 25% Malnutrition Alert Protein-Calorie Malnutrition N/A Is there a minimum of two criteria No selected? Query Text:Check all the applicable criteria. A minimum of two criteria are recommended for diagnosis of either severe or non-severe malnutrition. Intervention/Recommendation Comments c Expected Outcomes/Goals Expected Outcomes/Goals 1. PO intake to meet at least 75% of nutritional needs. 2. Wt stability, skin to remain intact, labs to approach WNL.
[2017-04-25] MEDS: Calcium Carb/Vit D 500 mg/200 U Tab PO SCH (10:31)
[2017-04-25] MEDS: Pantoprazole 40 mg EC Tab PO SCH (10:32)
--- NOTE | 2017-04-25 12:41 | Internal Medicine Prog Note ---
Internal Medicine Subjective - Subjective Patient seen and examined:: with staff, chart reviewed Patient is:: asleep, non-verbal, non-interactive Patient Complaints of:: congestion, constipation Per staff patient has:: no adverse event, no episodes of fall, poor appetite, noncompliant, confused, tolerating meds Internal Medicine Objective - Results Result Diagrams: 04/24/17 05:25 04/24/17 05:25 Recent Labs: Laboratory Last Values WBC 8.2 Th/cmm (4.8-10.8) 04/24/17 05:25 RBC 4.11 Mil/cmm (3.80-5.20) 04/24/17 05:25 Hgb 11.7 gm/dL (12-16) L 04/24/17 05:25 Hct 35.3 % (41.0-60) L 04/24/17 05:25 MCV 86.0 fl (81-100) 04/24/17 05:25 MCH 28.5 pg (27.0-31.0) 04/24/17 05:25 MCHC Differential 33.2 pg (28.0-36.0) 04/24/17 05:25 RDW 13.3 % (11.5-20.0) 04/24/17 05:25 Plt Count 184 Th/cmm (150-400) 04/24/17 05:25 MPV 8.7 fl 04/24/17 05:25 Neutrophils % 61.8 % (40.0-80.0) 04/24/17 05:25 Lymphocytes % 25.9 % (20.0-50.0) 04/24/17 05:25 Monocytes % 7.2 % (2.0-10.0) 04/24/17 05:25 Eosinophils % 4.1 % (0.0-5.0) 04/24/17 05:25 Basophils % 1.0 % (0.0-2.0) 04/24/17 05:25 Sodium 138 mEq/L (136-145) 04/24/17 05:25 Potassium 3.9 mEq/L (3.5-5.1) 04/24/17 05:25 Chloride 103 mEq/L (98-107) 04/24/17 05:25 Carbon Dioxide 30.9 mEq/L (21.0-31.0) 04/24/17 05:25 Anion Gap 8.0 (7.0-16.0) 04/24/17 05:25 BUN 7 mg/dL (7-25) 04/24/17 05:25 Creatinine 0.4 mg/dL (0.6-1.2) L 04/24/17 05:25 Est GFR ( Amer) TNP 04/24/17 05:25 Est GFR (Non-Af Amer) TNP 04/24/17 05:25 BUN/Creatinine Ratio 17.5 04/24/17 05:25 Glucose 110 mg/dL (70-105) H 04/24/17 05:25 Calcium 9.1 mg/dL (8.6-10.3) 04/24/17 05:25 Magnesium 2.2 mg/dL (1.9-2.7) 04/24/17 05:25 Total Bilirubin 0.4 mg/dL (0.3-1.0) 04/24/17 05:25 AST 13 U/L (13-39) 04/24/17 05:25 ALT 9 U/L (7-52) 04/24/17 05:25 Alkaline Phosphatase 59 U/L (34-104) 04/24/17 05:25 Ammonia 62 umol/L (16-53) H 04/24/17 05:25 B-Natriuretic Peptide 85.6 pg/mL (5.0-100.0) 04/24/17 05:25 Total Protein 6.4 gm/dL (6.0-8.3) 04/24/17 05:25 Albumin 3.2 gm/dL (3.7-5.3) L 04/24/17 05:25 Globulin 3.2 gm/dL 04/24/17 05:25 Albumin/Globulin Ratio 1.0 (1.0-1.8) 04/24/17 05:25 Urine Source CATH 04/21/17 15:35 Urine Color YELLOW 04/21/17 15:35 Urine Clarity CLOUDY (CLEAR) H 04/21/17 15:35 Urine pH 6.0 (4.6 - 8.0) 04/21/17 15:35 Ur Specific [place] 1.025 (1.005-1.030) 04/21/17 15:35 Urine Protein 30 mg/dL (NEGATIVE) H 04/21/17 15:35 Urine Glucose (UA) NEGATIVE mg/dL (NEGATIVE) 04/21/17 15:35 Urine Ketones NEGATIVE mg/dL (NEGATIVE) 04/21/17 15:35 Urine Blood SMALL (NEGATIVE) H 04/21/17 15:35 Urine Nitrate NEGATIVE (NEGATIVE) 04/21/17 15:35 Urine Bilirubin NEGATIVE (NEGATIVE) 04/21/17 15:35 Urine Urobilinogen 1.0 E.U./dL (0.2 - 1.0) 04/21/17 15:35 Ur Leukocyte Esterase MODERATE (NEGATIVE) H 04/21/17 15:35 Urine RBC 2-5 /hpf (0-5) 04/21/17 15:35 Urine WBC 10-25 /hpf (0-5) H 04/21/17 15:35 Ur Epithelial Cells MODERATE /lpf (FEW) 04/21/17 15:35 Urine Bacteria MODERATE /hpf (NONE SEEN) H 04/21/17 15:35 - Physical Exam Vitals and I&O: Vital Signs Temp 98.2 F 04/25/17 04:00 Pulse 72 04/25/17 10:31 Resp 18 04/25/17 07:43 BP 182/84 04/25/17 10:31 Pulse Ox 97 04/25/17 07:43 Intake & Output 04/24/17 04/25/17 04/25/17 18:59 06:59 18:59 Intake Total 1900 250 Output Total 0 Balance 1900 250 Weight (lbs) 54.522 kg 54.431 kg Intake: Intake, IV Amount 1050 50 Cefepime 1 gm In Dextrose 50 50 5% 50 ml @ 100 mls/hr IV Q12HR [facility] Rx#:[id number] D5-0.9%Ns 1,000 ml @ 80 1000 mls/hr IV .[id number] [facility] Rx #:[id number] Oral 850 200 Output: Stool 0 Other: # Voids 4 # Bowel Movements 0 0 Active Medications: Current Medications Acetaminophen (Tylenol) 650 mg PO Q4H PRN PRN Reason: Pain Or Fever above 101 Stop: 06/20/17 19:40 Al Hydrox/Mg Hydrox/Simethicone (Maalox) 30 ml PO Q6H PRN PRN Reason: Dyspepsia Stop: 06/20/17 19:40 Albuterol Sulfate (Albuterol 2.5mg/3ml Neb Ud) 2.5 mg HHN Q2HRT PRN PRN Reason: Shortness of Breath or Wheeze Stop: 06/20/17 19:40 Amlodipine Besylate (Norvasc) 5 mg PO DAILY [facility] Stop: 06/21/17 08:59 Last Admin: 04/25/17 10:31 Dose: 5 mg Brimonidine Tartrate (Alphagan 0.1% Ophth Soln) 1 drop EACH EYE BID [facility] Stop: 06/21/17 08:59 Last Admin: 04/25/17 10:31 Dose: 1 drop Calcium/Vitamin D (Oscal W/Vitamin D) 1 tab PO DAILY [facility] Stop: 06/21/17 08:59 Last Admin: 04/25/17 10:31 Dose: 1 tab Donepezil HCl (Aricept) 10 mg PO HS [facility] Stop: 06/20/17 20:59 Last Admin: 04/24/17 23:15 Dose: 10 mg Guaifenesin (Robitussin) 200 mg PO Q4HR PRN PRN Reason: Cough or Congestion Stop: 06/20/17 19:40 Dextrose/Sodium Chloride (D5-0.9%Ns) 1,000 mls @ 80 mls/hr IV .[id number] [facility] Stop: 06/20/17 19:44 Last Admin: 04/24/17 19:11 Dose: 80 mls/hr Cefepime HCl 1 gm/ Dextrose 50 mls @ 100 mls/hr IV Q12HR [facility] Stop: 06/21/17 08:59 Last Admin: 04/25/17 10:29 Dose: 100 mls/hr Ipratropium [place] (Atrovent Neb 0.5mg/2.5ml) 0.5 mg IH Q2HRT PRN PRN Reason: Shortness of Breath or Wheeze Stop: 06/20/17 19:40 Loratadine (Claritin) 10 mg PO DAILY [facility] Stop: 06/21/17 08:59 Last Admin: 04/25/17 10:32 Dose: 10 mg Lorazepam (Ativan) 0.5 mg PO Q12H PRN; Protocol PRN Reason: Anxiety Stop: 06/20/17 19:34 Magnesium Hydroxide (Milk Of Magnesia) 30 ml PO HS PRN PRN Reason: Constipation Stop: 06/20/17 19:34 Memantine (Namenda) 5 mg PO BID [facility] Stop: 06/21/17 08:59 Last Admin: 04/25/17 10:31 Dose: 5 mg Mineral Oil (Mineral Oil 30 Ml) 30 ml PO DAILY [facility] Stop: 04/26/17 08:59 Last Admin: 04/25/17 10:31 Dose: 30 ml Mirtazapine (Remeron) 7.5 mg PO HS [facility] PRN Reason: Protocol Stop: 06/20/17 20:59 Last Admin: 04/24/17 23:15 Dose: 7.5 mg Ondansetron HCl (Zofran) 4 mg IV Q8H PRN PRN Reason: Nausea / Vomiting Stop: 06/20/17 19:40 Pantoprazole Sodium (Protonix) 40 mg PO DAILY [facility] Stop: 06/21/17 08:59 Last Admin: 04/25/17 10:32 Dose: 40 mg General: lethargic, demented, bilateral temporal wasting, appears older HEENT: NC/AT, PERRLA Neck: Supple, No JVD Lungs: congested, rales, ronchi Cardiovascular: RRR, Normal S1, Normal S2, with murmur Abdomen: soft, thin, non-distended, positive bowel sound Extremities: excoriation, contracture, deformity Neurological: lethargic, disorganized, bedbound Internal Medicine Assmt/Plan - Assessment Assessment: - Assessment Assessment: acute uti altered mental status constipation arthritis glaucoma anemia malnutrition - Plan Plan: continue ivabx ivf for hydration cbc/bmp in am continue current orders - Plan Plan: cpm Nutritional Asmnt/Malnutr-PDOC - Dietary Evaluation Malnutrition Findings (Please click <Entered> for more info): Nutritional Asmnt/Malnutrition Start: 04/22/17 17: 36 Text: Status: Complete Freq: Document 04/22/17 17:36 LAUREN (Rec: 04/22/17 17:44 LAUREN [id number]) Nutritional Asmnt/Malnutrition Patient General Information Nutritional Screening High Risk Diagnosis dehydration, UTI Pertinent Medical Hx/Surgical Hx arthritis, anemia, thrombocytopenia purpura, s/p UTI, glaucoma Subjective Information Pt seen sleeping at time of visit. Nurse reported pt consumed 20% of breakfast, about 25% of lunch. Pt only had pudding, jello and juice at lunch. Current Diet Order/ Nutrition Support [facility] soft chopped Pertinent Medications oscal w/vit D, D5-0.9%ns, protonix, remeron Pertinent Labs 04/21 Na 140, K 4.0, Cl 103, BUN 21, Cr 0.8, glucose 117 Nutritional Hx/Data Height 1.55 m Height (Calculated Centimeters) 154.9 Current Weight (lbs) 47.627 kg Weight (Calculated Kilograms) 47.6 Weight (Calculated Grams) 14605.2 [place] Body Weight 105 % [place] Body Weight 100 Body Mass Index (BMI) 19.8 Weight Status Approriate GI Symptoms GI Symptoms None Last BM no record Difficult in: None Skin Integrity/Comment: scar tissue to sacro-coccyx and buttocks Current %PO Poor (25-49%) Estimated Nutritional Goals BEE in Kcals: Using Current wt Calories/Kcals/Kg 25-30 Kcals Calculated 7062-7430 Protein: Using Current wt Protein g/k-1.2 Protein Calculated 48-57 Fluid: ml 1200-1440ml (1ml/kcal) Nutritional Problem 1. Problem Problem inadequate food intake Etiology possible poor appetite, weakness Signs/Symptoms: PO intake 25% Malnutrition Alert Protein-Calorie Malnutrition N/A Is there a minimum of two criteria No selected? Query Text:Check all the applicable criteria. A minimum of two criteria are recommended for diagnosis of either severe or non-severe malnutrition. Intervention/Recommendation Comments c Expected Outcomes/Goals Expected Outcomes/Goals 1. PO intake to meet at least 75% of nutritional needs. 2. Wt stability, skin to remain intact, labs to approach WNL.
[2017-04-25] MEDS: D5-0.9%NS 1,000 ML IV SCH (16:56)
[2017-04-26] MEDS: D5-0.9%NS 1,000 ML IV SCH (06:45)
[2017-04-26] MEDS: Calcium Carb/Vit D 500 mg/200 U Tab PO SCH (09:06)
[2017-04-26] MEDS: Pantoprazole 40 mg EC Tab PO SCH (09:06)
--- NOTE | 2017-04-26 09:11 | Internal Medicine Prog Note ---
Internal Medicine Subjective - Subjective Service Date: 04/26/17 (refused lab to be drawn this morning) Patient is:: asleep, non-verbal, non-interactive Patient Complaints of:: congestion, constipation Per staff patient has:: no adverse event, no episodes of fall, poor appetite, noncompliant, confused, tolerating meds Internal Medicine Objective - Results Result Diagrams: 04/24/17 05:25 04/24/17 05:25 Recent Labs: Laboratory Last Values WBC 8.2 Th/cmm (4.8-10.8) 04/24/17 05:25 RBC 4.11 Mil/cmm (3.80-5.20) 04/24/17 05:25 Hgb 11.7 gm/dL (12-16) L 04/24/17 05:25 Hct 35.3 % (41.0-60) L 04/24/17 05:25 MCV 86.0 fl (81-100) 04/24/17 05:25 MCH 28.5 pg (27.0-31.0) 04/24/17 05:25 MCHC Differential 33.2 pg (28.0-36.0) 04/24/17 05:25 RDW 13.3 % (11.5-20.0) 04/24/17 05:25 Plt Count 184 Th/cmm (150-400) 04/24/17 05:25 MPV 8.7 fl 04/24/17 05:25 Neutrophils % 61.8 % (40.0-80.0) 04/24/17 05:25 Lymphocytes % 25.9 % (20.0-50.0) 04/24/17 05:25 Monocytes % 7.2 % (2.0-10.0) 04/24/17 05:25 Eosinophils % 4.1 % (0.0-5.0) 04/24/17 05:25 Basophils % 1.0 % (0.0-2.0) 04/24/17 05:25 Sodium 138 mEq/L (136-145) 04/24/17 05:25 Potassium 3.9 mEq/L (3.5-5.1) 04/24/17 05:25 Chloride 103 mEq/L (98-107) 04/24/17 05:25 Carbon Dioxide 30.9 mEq/L (21.0-31.0) 04/24/17 05:25 Anion Gap 8.0 (7.0-16.0) 04/24/17 05:25 BUN 7 mg/dL (7-25) 04/24/17 05:25 Creatinine 0.4 mg/dL (0.6-1.2) L 04/24/17 05:25 Est GFR ( Amer) TNP 04/24/17 05:25 Est GFR (Non-Af Amer) TNP 04/24/17 05:25 BUN/Creatinine Ratio 17.5 04/24/17 05:25 Glucose 110 mg/dL (70-105) H 04/24/17 05:25 Calcium 9.1 mg/dL (8.6-10.3) 04/24/17 05:25 Magnesium 2.2 mg/dL (1.9-2.7) 04/24/17 05:25 Total Bilirubin 0.4 mg/dL (0.3-1.0) 04/24/17 05:25 AST 13 U/L (13-39) 04/24/17 05:25 ALT 9 U/L (7-52) 04/24/17 05:25 Alkaline Phosphatase 59 U/L (34-104) 04/24/17 05:25 Ammonia 62 umol/L (16-53) H 04/24/17 05:25 B-Natriuretic Peptide 85.6 pg/mL (5.0-100.0) 04/24/17 05:25 Total Protein 6.4 gm/dL (6.0-8.3) 04/24/17 05:25 Albumin 3.2 gm/dL (3.7-5.3) L 04/24/17 05:25 Globulin 3.2 gm/dL 04/24/17 05:25 Albumin/Globulin Ratio 1.0 (1.0-1.8) 04/24/17 05:25 Urine Source CATH 04/21/17 15:35 Urine Color YELLOW 04/21/17 15:35 Urine Clarity CLOUDY (CLEAR) H 04/21/17 15:35 Urine pH 6.0 (4.6 - 8.0) 04/21/17 15:35 Ur Specific Lutz 1.025 (1.005-1.030) 04/21/17 15:35 Urine Protein 30 mg/dL (NEGATIVE) H 04/21/17 15:35 Urine Glucose (UA) NEGATIVE mg/dL (NEGATIVE) 04/21/17 15:35 Urine Ketones NEGATIVE mg/dL (NEGATIVE) 04/21/17 15:35 Urine Blood SMALL (NEGATIVE) H 04/21/17 15:35 Urine Nitrate NEGATIVE (NEGATIVE) 04/21/17 15:35 Urine Bilirubin NEGATIVE (NEGATIVE) 04/21/17 15:35 Urine Urobilinogen 1.0 E.U./dL (0.2 - 1.0) 04/21/17 15:35 Ur Leukocyte Esterase MODERATE (NEGATIVE) H 04/21/17 15:35 Urine RBC 2-5 /hpf (0-5) 04/21/17 15:35 Urine WBC 10-25 /hpf (0-5) H 04/21/17 15:35 Ur Epithelial Cells MODERATE /lpf (FEW) 04/21/17 15:35 Urine Bacteria MODERATE /hpf (NONE SEEN) H 04/21/17 15:35 - Physical Exam Vitals and I&O: Vital Signs Temp 98.4 F 04/26/17 04:00 Pulse 83 04/26/17 09:06 Resp 12 04/26/17 08:00 BP 169/93 04/26/17 09:06 Pulse Ox 96 04/26/17 08:00 Intake & Output 04/25/17 04/26/17 04/26/17 18:59 06:59 18:59 Intake Total 1596 954 350 Output Total 0 Balance 1596 954 350 Weight (lbs) 121 lb 12.8 oz 119 lb 3.2 oz 119 lb Intake: Intake, IV Amount 1146 954 Cefepime 1 gm In Dextrose 50 50 5% 50 ml @ 100 mls/hr IV Q12HR BASHIR Rx#:[id number] D5-0.9%Ns 1,000 ml @ 80 1096 904 mls/hr IV .[id number] BASHIR Rx #:[id number] Oral 450 350 Output: Stool 0 Other: # Voids 3 # Bowel Movements 0 Active Medications: Current Medications Acetaminophen (Tylenol) 650 mg PO Q4H PRN PRN Reason: Pain Or Fever above 101 Stop: 06/20/17 19:40 Last Admin: 04/26/17 02:18 Dose: 650 mg Al Hydrox/Mg Hydrox/Simethicone (Maalox) 30 ml PO Q6H PRN PRN Reason: Dyspepsia Stop: 06/20/17 19:40 Albuterol Sulfate (Albuterol 2.5mg/3ml Neb Ud) 2.5 mg HHN Q2HRT PRN PRN Reason: Shortness of Breath or Wheeze Stop: 06/20/17 19:40 Amlodipine Besylate (Norvasc) 5 mg PO DAILY [facility] Stop: 06/21/17 08:59 Last Admin: 04/26/17 09:06 Dose: 5 mg Brimonidine Tartrate (Alphagan 0.1% Ophth Soln) 1 drop EACH EYE BID BASHIR Stop: 06/21/17 08:59 Last Admin: 04/26/17 09:05 Dose: 1 drop Calcium/Vitamin D (Oscal W/Vitamin D) 1 tab PO DAILY BASHIR Stop: 06/21/17 08:59 Last Admin: 04/26/17 09:06 Dose: 1 tab Donepezil HCl (Aricept) 10 mg PO HS [facility] Stop: 06/20/17 20:59 Last Admin: 04/25/17 21:41 Dose: 10 mg Guaifenesin (Robitussin) 200 mg PO Q4HR PRN PRN Reason: Cough or Congestion Stop: 06/20/17 19:40 Dextrose/Sodium Chloride (D5-0.9%Ns) 1,000 mls @ 80 mls/hr IV .[id number] [facility] Stop: 06/20/17 19:44 Last Admin: 04/26/17 06:45 Dose: 80 mls/hr Cefepime HCl 1 gm/ Dextrose 50 mls @ 100 mls/hr IV Q12HR BASHIR Stop: 06/21/17 08:59 Last Admin: 04/26/17 09:05 Dose: 100 mls/hr Ipratropium [place] (Atrovent Neb 0.5mg/2.5ml) 0.5 mg IH Q2HRT PRN PRN Reason: Shortness of Breath or Wheeze Stop: 06/20/17 19:40 Loratadine (Claritin) 10 mg PO DAILY [facility] Stop: 06/21/17 08:59 Last Admin: 04/26/17 09:06 Dose: 10 mg Lorazepam (Ativan) 0.5 mg PO Q12H PRN; Protocol PRN Reason: Anxiety Stop: 06/20/17 19:34 Last Admin: 04/25/17 21:41 Dose: 0.5 mg Magnesium Hydroxide (Milk Of Magnesia) 30 ml PO HS PRN PRN Reason: Constipation Stop: 06/20/17 19:34 Memantine (Namenda) 5 mg PO BID BSAHIR Stop: 06/21/17 08:59 Last Admin: 04/26/17 09:06 Dose: 5 mg Mirtazapine (Remeron) 7.5 mg PO HS BASHIR PRN Reason: Protocol Stop: 06/20/17 20:59 Last Admin: 04/25/17 21:40 Dose: 7.5 mg Ondansetron HCl (Zofran) 4 mg IV Q8H PRN PRN Reason: Nausea / Vomiting Stop: 06/20/17 19:40 Pantoprazole Sodium (Protonix) 40 mg PO DAILY BASHIR Stop: 06/21/17 08:59 Last Admin: 04/26/17 09:06 Dose: 40 mg General: lethargic, demented, bilateral temporal wasting, appears older HEENT: NC/AT, PERRLA Neck: Supple, No JVD Lungs: congested, rales, ronchi Cardiovascular: RRR, Normal S1, Normal S2, with murmur Abdomen: soft, thin, non-distended, positive bowel sound Extremities: excoriation, contracture, deformity Neurological: lethargic, disorganized, bedbound Internal Medicine Assmt/Plan - Assessment Assessment: acute uti altered mental status constipation arthritis glaucoma - Plan Plan: continue ivabx psych consult ivf for hydration cbc/bmp in am continue current orders Nutritional Asmnt/Malnutr-PDOC - Dietary Evaluation Malnutrition Findings (Please click <Entered> for more info): Nutritional Asmnt/Malnutrition Start: 04/22/17 17: 36 Text: Status: Complete Freq: Document 04/22/17 17:36 LAUREN (Rec: 04/22/17 17:44 LAUREN [email or web address]) Nutritional Asmnt/Malnutrition Patient General Information Nutritional Screening High Risk Diagnosis dehydration, UTI Pertinent Medical Hx/Surgical Hx arthritis, anemia, thrombocytopenia purpura, s/p UTI, glaucoma Subjective Information Pt seen sleeping at time of visit. Nurse reported pt consumed 20% of breakfast, about 25% of lunch. Pt only had pudding, jello and juice at lunch. Current Diet Order/ Nutrition Support [facility] soft chopped Pertinent Medications oscal w/vit D, D5-0.9%ns, protonix, remeron Pertinent Labs 04/21 Na 140, K 4.0, Cl 103, BUN 21, Cr 0.8, glucose 117 Nutritional Hx/Data Height 5 ft 1 in Height (Calculated Centimeters) 154.9 Current Weight (lbs) 105 lb Weight (Calculated Kilograms) 47.6 Weight (Calculated Grams) 14288.2 [place] Body Weight 105 % [place] Body Weight 100 Body Mass Index (BMI) 19.8 Weight Status Approriate GI Symptoms GI Symptoms None Last BM no record Difficult in: None Skin Integrity/Comment: scar tissue to sacro-coccyx and buttocks Current %PO Poor (25-49%) Estimated Nutritional Goals BEE in Kcals: Using Current wt Calories/Kcals/Kg 25-30 Kcals Calculated 3472-2338 Protein: Using Current wt Protein g/k-1.2 Protein Calculated 48-57 Fluid: ml 1200-1440ml (1ml/kcal) Nutritional Problem 1. Problem Problem inadequate food intake Etiology possible poor appetite, weakness Signs/Symptoms: PO intake 25% Malnutrition Alert Protein-Calorie Malnutrition N/A Is there a minimum of two criteria No selected? Query Text:Check all the applicable criteria. A minimum of two criteria are recommended for diagnosis of either severe or non-severe malnutrition. Intervention/Recommendation Comments c Expected Outcomes/Goals Expected Outcomes/Goals 1. PO intake to meet at least 75% of nutritional needs. 2. Wt stability, skin to remain intact, labs to approach WNL.
[2017-04-26 09:54] LABS: % BASOPHILS 0.4 % (0.0-2.0); % EOSINOPHILS 4.4 % (0.0-5.0); % LYMPHOCYTES 28.4 % (20.0-50.0); % MONOCYTES 7.5 % (2.0-10.0); % NEUTROPHILS 59.3 % (40.0-80.0); EOSINOPHILE ABSOLUTE 0.4 Th/cmm (0.1-0.4); LYMPHOCYTE ABSOLUTE 2.5 Th/cmm (1.5-3.0); MEAN CELL VOLUME 85.9 fl (81-100); MEAN CORPUSCULAR HEMOGLOBIN 28.2 pg (27.0-31.0); MEAN CORPUSCULAR HGB CONC 32.8 pg (28.0-36.0); MEAN PLATELET VOLUME 8.1 fl; MONOCYTE ABSOLUTE 0.7 Th/cmm (0.3-1.0); NEUTROPHILE ABSOLUTE 5.2 Th/cmm (1.8-8.0); RED BLOOD COUNT 4.62 Mil/cmm (3.80-5.20); RED CELL DISTRIBUTION WIDTH 12.8 % (11.5-20.0); WHITE BLOOD COUNT 8.8 Th/cmm (4.8-10.8)
[2017-04-26 09:56] LABS: HEMATOCRIT 39.7 % (41.0-60); PLATELET COUNT 232 Th/cmm (150-400)
[2017-04-26 10:15] LABS: ANION GAP 10.5 (7.0-16.0); BUN - UREA NITROGEN 7 mg/dL (7-25); CALCIUM SERUM 9.6 mg/dL (8.6-10.3); CARBON DIOXIDE 28.2 mEq/L (21.0-31.0); CHLORIDE 104 mEq/L (98-107); CREATININE - SERUM 0.6 mg/dL (0.6-1.2); GLUCOSE 137 mg/dL (70-105); MAGNESIUM 2.3 mg/dL (1.9-2.7); POTASSIUM SERUM 3.7 mEq/L (3.5-5.1); SODIUM SERUM 139 mEq/L (136-145)
--- NOTE | 2017-04-27 03:54 | Consultation ---
DATE OF CONSULTATION: 04/26/2017 PSYCHIATRIC CONSULTATION CHIEF COMPLAINT: Psychotic illness. HISTORY OF PRESENT ILLNESS: The patient is a 77-year-old female with history of multiple medical problems, dementia, has been confused, restless, talking to herself, easily agitated. The patient has not been making sense with staff, but passively accepting treatment. At times becomes angry and starts having episodes of yelling. The patient is not a good historian. PAST PSYCHIATRIC HISTORY: Dementia, Alzheimer's type and psychosis and also depression. PAST MEDICAL HISTORY: Hypertension, osteoarthritis, thrombocytopenia, recurrent UTIs, and GERD. The patient admitted to the hospital at this time with dehydration and urinary tract infection. PSYCHOSOCIAL HISTORY: The patient resides at [facility] and requires complete care. MENTAL STATUS EXAMINATION: Speech is irrelevant. Thought at times talking to herself, talking to invisible people. The patient is oriented to person, not oriented to time or place. Insight is poor. Judgment is impaired. ASSESSMENT: Psychosis, not otherwise specified, rule out delirium secondary to a urinary tract infection; dementia, Alzheimer's type; and history of depression. PLAN: At this time, would recommend continuation of medical and supportive measures. We will use Ativan 0.5 mg p.o. q.6 hours p.r.n. anxiety, use a small dose of risperidone 0.25 mg p.o. at bedtime to help with hallucinations, increase dose gradually as tolerated. Thank you for the consultation. We will follow the patient while in the hospital. [facility]# [id number]
[2017-04-27 07:10] LABS: FOLIC ACID 9.6 ng/mL (>3.0)
--- NOTE | 2017-07-02 01:10 | Discharge Summary ---
DATE OF DISCHARGE: 04/26/2017 DISCHARGE DIAGNOSES: 1. Acute urinary tract infection, altered mental status, which has resolved. 2. Acute dehydration, improved. 3. Constipation, which she has been treated. 4. Arthritis. 5. Glaucoma. 6. Schizophrenia. HISTORY OF PRESENT ILLNESS: A 77-year-old female resident of [facility], brought to [facility] due to increasing lethargy and episodes of confusion. PHYSICAL EXAMINATION: GENERAL: The patient is well-developed, well-nourished, no acute distress. VITAL SIGNS: Stable. HEENT: Normocephalic, atraumatic. NECK: Supple. No mass. LUNGS: Clear bilaterally. ABDOMEN: Soft, nontender. HOSPITAL COURSE: During the hospital stay, the patient was admitted to the telemetry unit. The patient had a urinalysis done, positive for UTI. The patient also had a KUB done and impression is copious stool throughout the colon with gas filled loops of bowel, probably secondary to constipation. The patient was kept on IV fluids for hydration. The patient was also on IV antibiotics Maxipime. The patient was given laxatives and constipation has improved. The patient's electrolyte levels are being monitored during the hospital stay. The patient also had a psych eval as well. The patient's electrolyte levels are within normal limits and no constipation. The patient did not have any fevers during hospital stay. For this reason, the patient is stable for discharge. CONDITION UPON DISCHARGE: Fair. DISPOSITION: [facility]. JOB# [id number]
== END 2017-04-26 18:22 | disposition home or self-care (01) | DRG 689 ==
LOC: ER 15:09 → MSI 19:00
PROVIDERS: ADMIT Internal Medicine; ATTEND Internal Medicine
DX: N39.0 Urinary tract infection, site not specified (principal); G93.41 Metabolic encephalopathy; E43 Unspecified severe protein-calorie malnutrition; E86.0 Dehydration; D64.9 Anemia, unspecified; G30.9 Alzheimer's disease, unspecified; F02.80 Dementia in other diseases classified elsewhere, unspecified severity, without behavioral disturbance, psychotic disturbance, mood disturbance, and anxiety; F20.9 Schizophrenia, unspecified; K59.00 Constipation, unspecified; M19.90 Unspecified osteoarthritis, unspecified site; H40.9 Unspecified glaucoma; K21.9 Gastro-esophageal reflux disease without esophagitis; F29 Unspecified psychosis not due to a substance or known physiological condition; Z68.22 Body mass index [BMI] 22.0-22.9, adult
CPT/HCPCS: 36415-UA; 71045-TC; 74000-TC; 80048-TC; 80053-TC; 81001-TC; 82140-TC; 82607-90; 82746-90; 83735-TC; 83880-TC; 85025-TC; 87086-90; 94760; J0692; J0696; J7030; J7042; Z7610